=== PATIENT | female | born 1995 | race American Indian/Alaskan Native ===

== ENCOUNTER 2019-04-17 23:12 | Emergency (ER) | payer MEDICAID ==
[2019-04-18] MEDS ORDERED: KETOROLAC 30 MG/1 ML INJ IM ONE (01:17)
[2019-04-18] MEDS ORDERED: dexAMETHasone 20 MG/5 ML VIAL IM ONE (01:17)
[2019-04-18] MEDS ORDERED: PENICILLIN G BENZATHINE 1.2 MILLION UNIT/2 ML INJ IM ONE (01:18)
[2019-04-18] MEDS ORDERED: ONDANSETRON 4 MG ODT TAB PO ONE (01:18)
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
[2019-04-18 02:58] VITALS: BP 116/63
== END 2019-04-18 03:49 | disposition home or self-care (01) ==
LOC: ED 23:12
DX: J02.9 Acute pharyngitis, unspecified (principal); R11.2 Nausea with vomiting, unspecified; F12.10 Cannabis abuse, uncomplicated; Z79.1 Long term (current) use of non-steroidal anti-inflammatories (NSAID); Z79.899 Other long term (current) drug therapy
CPT/HCPCS: 87430; 96372; 99283; J0561; J1100; J1885; Q0162

== ENCOUNTER 2021-12-03 21:22 | Emergency (ER) | payer MEDICAID ==
[2021-12-04 00:36] VITALS: BP 101/60
[2021-12-04 01:56] LABS: HCG Qualitative,Urine Negative (Negative)
== END 2021-12-04 21:03 | disposition left against medical advice (07) ==
LOC: ED 21:22
DX: N93.9 Abnormal uterine and vaginal bleeding, unspecified (principal); Z53.21 Procedure and treatment not carried out due to patient leaving prior to being seen by health care provider
CPT/HCPCS: 81025